=== PATIENT | female | born 1940 | race Caucasian/White ===

== ENCOUNTER 2017-05-19 20:37 | Inpatient (IN) | payer MEDICARE, BC ==
[~2017-05-19] VITALS: Ht 162.6 cm; Wt 114.0 kg
--- NOTE | ~2017-05-19 | CO ---
Unit #: [id number] #: [id number] Patient: LAI VILLEGAS [id number] [address] [place], [place] [address] [id number] I MR#: [id number] NAME: LAI VILLEGAS ROOM: 311 Age: 77 Sex: F Admission Date: 05/20/2017 : 1940 Attending Physician: Shruti Chester M.D. Primary Care Physician: Murray Mary M.D. Consultation Date: 05/20/2017 CONSULTATION REPORT BRIEF HISTORY The patient is a 77-year-old lady, who lives at home, was unable to ambulate quite sometime. She presents with persistent erythema on her lower extremities with open wounds anteriorly. She presents for evaluation. PAST MEDICAL HISTORY Hypertension and thyroid disease. PAST SURGICAL HISTORY She has had bilateral total knee replacements in 2011, right hip replacement, hemorrhoidectomy. MEDICATIONS Celebrex, aspirin, hydrocodone. SOCIAL HISTORY No smoking. No alcohol. Lives at home with and daughter. FAMILY HISTORY Negative for GI malignancy. REVIEW OF SYSTEMS No cardiopulmonary complaints at this time. Else, 10 systems reviewed and negative. PHYSICAL EXAMINATION GENERAL: She is awake, alert, comfortable. VITAL SIGNS: Temperature is 97.7, pulse 100, blood pressure 160/80. HEENT: Unremarkable. NECK: Supple. No JVD. Trachea midline. LUNGS: Clear to auscultation. Bilateral breath sounds symmetric. CARDIOVASCULAR: Regular rate and rhythm. ABDOMEN: Soft, nontender, and nondistended. I palpate no masses. No hepatosplenomegaly. EXTREMITIES: Shows circumferential erythema in the bilateral lower extremities with 2+ pitting edema. There was exudate on the anterior portion of the bilateral lower extremities. She has a palpable posterior pulses. DIAGNOSTIC STUDIES LABORATORY RESULTS: White count is 19.5. ASSESSMENT Unit #: [id number] #: [id number] Patient: LAI VILLEGAS Chronic venous stasis with cellulitis. PLAN Recommend IV antibiotics. We will defer local treatment to wound care nurse. Did not see an area that needs surgical debridement at this time. Likely require long-term compression treatment with Unna boots or compressive stockings. Dictated by... Catrachito Verde M.D. MER/refugio TD: 05/20/2017 19:28 JOB #: [id number] CONSULTATION REPORT Page 1 of 1 X Catrachito Verde MD CONSULTATION REPORT
--- NOTE | ~2017-05-19 | BMI ---
[facility] Nutrition Therapy DATE: 05/20/17 Patient: LAI VILLEGAS Physician: KEEGAN Address: [address] [place] [address] Room/Bed: [address] [place] [address], Zip: [place] [address] Admit Date: 05/20/17 Date of : 40 Height: 5 4 Weight: 251 114 HIGH BMI NOTE: ANTHROPOMETRICS: HT: 64" WT: 114 KG BMI: 43.1 DIET: HEART HEALTHY RECOMMENDATIONS: 1. CONTINUE CURRENT DIET TO PROMOTE GRADUAL WEIGHT LOSS TOWARDS A HEALTHY BMI RANGE. Respectfully, MITCHEL PETER RD, LD [employer] [facility] cc: client file
--- NOTE | ~2017-05-19 | CR72 ---
[facility] A Service of [facility] RADIOLOGY TEXT RESULTS PATIENT: LAI VILLEGAS LOCATION: [facility] 311- : 40 UNIT #: [id number] AGE: [address]: Shruti Chester MD SEX: F ORDER DR: [id number] [facility] [address] [place], [place] [address] [id number] I MR#: [id number] Acc #: [id number] NAME: LAI VILLEGAS : 1940 SEX: F STUDY DATE/TIME: 05/19/2017 22:21 UNIT: C3A PCU ROOM: [facility] STUDY DESCRIPTION: CR Chest Single View Portable Attending Physician: Key Reyes M.D. Ordering Physician: Ara Hernandez M.D. Primary Care Physician: Murray Mary M.D. MEDICAL IMAGING REPORT This report is preliminary unless electronic signature is present EXAM AP view of the chest COMPARISON July 10, 2012. INDICATION 77-year-old female with chest pain and dyspnea today. FINDINGS Hazy attenuation over the left costophrenic sulcus may reflect prominent breast shadow. Left basilar atelectasis, pneumonia, or pleural effusion cannot entirely be excluded. There is multilevel degenerative change of the visualized cervical spine bilaterally. No evidence of pneumothorax. Right lung is clear. Cardiomediastinal silhouette is within normal limits. There is undersurface touching of both humeral heads to the acromion, findings suggestive of full-thickness rotator cuff tear bilaterally. IMPRESSION 1. Attenuation over the left costophrenic sulcus may represent prominent breast shadow but left basilar atelectasis, pneumonia, or pleural effusion cannot entirely be excluded. Standard PA and lateral views of the chest may be helpful for evaluation if clinically indicated. 2. Findings most consistent with bilateral full-thickness rotator cuff tear. Dictated by... Mike Fuentes M.D. THIS IS AN ELECTRONICALLY VERIFIED REPORT Mike Fuentes M.D. at 05/24/2017 11:02 PM [facility] A Service of [facility] RADIOLOGY TEXT RESULTS PATIENT: LAI VILLEGAS LOCATION: C3A 311-01 : 40 UNIT #: [id number] AGE: [address]: Shruti Cehster MD SEX: F ORDER DR: Brady TD: 05/20/2017 05:40 JOB #: [id number] MEDICAL IMAGING REPORT Page 1 of 1 COPY
--- NOTE | ~2017-05-19 | CO ---
Unit #: [id number] #: [id number] Patient: LAI VILLEGAS [id number] [address] [address] [id number] I MR#: [id number] NAME: LAI VILLEGAS ROOM: 311 Age: 77 Sex: F Admission Date: 05/20/2017 : 1940 Attending Physician: Shruti Chester M.D. Primary Care Physician: Murray Mary M.D. CONSULTATION REPORT REASON FOR CONSULTATION Hyponatremia. HISTORY OF PRESENT ILLNESS The patient is a 77-year-old white female with known history of hypertension and history of arthritis, came in with lower extremity swelling and wound and admitted for underlying cellulitis. Sodium level on admission noted to be 117. The patient was noted to have unkempt clothes with solidified fecal material in the clothes. The patient was treated with IV fluids and normal saline. MEDICATIONS No home medications other than Tylenol. PAST MEDICAL HISTORY Significant for hypertension; arthritis, status post bilateral total knee replacement; right hip replacement. ALLERGIES No known drug allergies. FAMILY HISTORY Significant for coronary artery disease. SOCIAL HISTORY The patient lives at home with her daughter and her and has a long-term history of smoking several pack years and does not drink. REVIEW OF SYSTEMS CVS: No chest pain. RESPIRATORY: No cough or expectoration. GI: As above. : No hematuria. No dysuria. PHYSICAL EXAMINATION GENERAL: The patient is awake and alert. VITAL SIGNS: Temperature is 97.7, heart rate is 100 per minute, blood pressure is 167/86, saturation is 96%. HEENT: Head is atraumatic. Extraocular movements are intact. NECK: Supple. There is no elevation of JVD. CHEST: Clear. Air entry is decreased in the bases. S1-S2 audible. There is no S3. No S4. ABDOMEN: Soft. There is no organomegaly. No guarding. No rigidity. No rebound tenderness. There is bilateral lower extremity edema with Unit #: [id number] #: [id number] Patient: LAI VILLEGAS dressing on both lower extremities. DIAGNOSTIC STUDIES LABORATORY RESULTS: Significant for sodium 117, potassium 5.2, chloride is 87, CO2 is 19, BUN is 59, creatinine is 1.4, glucose is 121, calcium is 9.1. On 05/19/2017, the CK is 126, total bilirubin is 1.0. WBCs 13.4, hemoglobin is 12.4, hematocrit is 37.7, platelets 487. Urinalysis is bland. Lactic acid is 1.8. Tylenol level is less than 10. Cortisol is 55. TSH is 1.51. Vitamin B12 is 997. IMPRESSION 1. Hyponatremia likely hypervolemic hyponatremia with increased ADH state. We will stop the IV fluids and start diuretics and restrict the fluids. Also consider checking echocardiogram for ejection fraction and diastolic dysfunction. 2. Non-anion gap metabolic acidosis, likely underlying respiratory alkalosis. Check ABG. Check for underlying RTA. 3. Hypertension. 4. Might need evaluation for rehab or skilled nursing placement. We will follow the patient. Dictated by... Pete Genao M.D. RA/refugio TD: 05/22/2017 18:22 JOB #: [id number] CONSULTATION REPORT Page 1 of 1 X Pete Genao MD CONSULTATION REPORT
--- NOTE | ~2017-05-19 | DS ---
Unit #: [id number] #: [id number] Patient: LAI VILLEGAS [id number] [address] [address] [id number] I MR#: [id number] NAME: LAI VILLEGAS ROOM: [facility] Age: 77 Sex: F Admission Date: 05/20/2017 : 1940 Discharge Date: 05/25/2017 Attending Physician: Shruti Chester M.D. Primary Care Physician: Murray Mary M.D. DISCHARGE SUMMARY DISCHARGE DIAGNOSES 1. Bilateral lower extremity cellulitis with open wounds. 2. Right posterior upper back decubitus ulcer. 3. Recurrent falls. 4. Increasing immobilization syndrome. 5. Dehydration. 6. Hypovolemic hyponatremia. 7. Elevated liver enzymes. 8. Degenerative joint disease. 9. Acute kidney injury. 10. Metabolic acidosis. 11. Bacteremia secondary to contamination with diphtheroids. 12. Mild hyperkalemia. 13. Hyperuricemia. 14. Moderate protein malnutrition. 15. Morbid obesity. CONSULTANTS Dr. Verde. Dr. Nikita Genao. PROCEDURES PERFORMED None. DIAGNOSTIC DATA LABORATORY: Sodium 133, potassium 4.7, creatinine 0.8. Hepatitis panel negative. Blood cultures show diphtheroids, likely contamination. Strep DNA group A negative. ABG, pH 7.38, carbon dioxide 38, oxygen 90. BNP 160. B12 level 997. BMI 43. IMAGING: Chest x-ray shows bilateral atelectasis. ALLERGIES No known drug allergies. DISCHARGE MEDICATIONS 1. Bactroban applied topically b.i.d. 2. Colace 100 p.o. b.i.d. 3. MiraLAX 17 g daily p.r.n. constipation. 4. Keflex 500 mg p.o. t.i.d. for 4 days. 5. Lasix 40 p.o. b.i.d. 6. Florastor 250 p.o. b.i.d. 7. Multivitamin 1 tablet daily. 8. Aspirin 81 daily. Unit #: [id number] #: [id number] Patient: LAI VILLEGAS 9. Lortab 5 mg t.i.d. p.r.n. pain. 10. Eye vitamin tablet 1 tablet p.o. b.i.d. 11. Clobetasol applied topically b.i.d. HOSPITAL COURSE 77-year-old admitted because of cellulitis. Bilateral leg cellulitis with open wounds: The patient was seen by [facility]. They recommend no surgery needed. The patient was started on IV Unasyn. No wound cultures available. The patient will be discharged on Keflex for four more days. Continue with local wound care. Hypervolemic hyponatremia: Patient was seen by nephrology. Currently volume okay. Patient received initially IV fluids. Currently off fluids. Sodium 133 and stable. Metabolic acidosis: The patient received bicarbonate. Currently stable. Posterior back decubitus: Continue with local wound care. Immobility and falls: The patient is being discharged to rehab. Sepsis: Present on admission. Secondary to cellulitis. Resolved currently. Acute kidney injury: Prerenal. The patient received IV fluids on admission. Currently stable. Transaminitis: Likely from Tylenol. Monitor closely. Current levels are normal. The patient will be discharged to rehab. The patient needs continuous local wound care and physical therapy. Dictated by... Lizandro Herrmann/ney TD: 05/25/2017 12:05 JOB #: [id number] CC: Murray Mary M.D. DISCHARGE SUMMARY Page 1 of 1 X Shruti Chester MD X DISCHARGE SUMMARY
--- NOTE | ~2017-05-19 | EKG ---
PATIENT: LAI VILLEGAS UNIT #: [id number] Ventricular Rate: 98 BPM Atrial Rate: 98 BPM P-R Interval: 150 ms QRS Duration: 82 ms Q-T Interval: 334 ms QTC Calculation(Bezet): 426 ms P Sidney: 38 degrees Calculated R Sidney: 41 degrees Calculated T Sidney: 35 degrees Diagnosis Line: Normal sinus rhythm Diagnosis Line: Normal ECG Diagnosis Line: When compared with ECG of 25-JUL-2012 10:48, Diagnosis Line: ST elevation now present in Inferior leads Diagnosis Line: Nonspecific T wave abnormality no longer evident Diagnosis Line: in Anterolateral leads Diagnosis Line: Confirmed by CHRISTINE CALDERON MD ([id number]) on Diagnosis Line: 05/20/2017 4:46:02 PM INTERPRETING : CARMELA
--- NOTE | ~2017-05-19 | HP ---
Unit #: [id number] #: [id number] Patient: LAI VILLEGAS [id number] [address] [address] [id number] I MR#: [id number] NAME: LAI VILLEGAS ROOM: 311 Age: 77 Sex: F Admission Date: 05/20/2017 : 1940 Attending Physician: Key Reyes M.D. Primary Care Physician: Murray Mary M.D. HISTORY AND PHYSICAL CHIEF COMPLAINT Bilateral lower extremity cellulitis with open wounds, dehydration, hyponatremia. HISTORY This 77-year-old female with previous history of hypertension, DJD, is admitted for lower extremity cellulitis. Patient lives with her and her daughter recently moved in. The patient has become increasing immobilized not being able to get off the couch. At some point in time, she developed lower extremity wounds, which she takes Tylenol and used an antibiotic ointment. Fell x2 over the past couple of days. She was brought to this emergency department late last evening extremely unkempt with clothes that appeared not to have been changed for a long time caked in feces. On examination, she has bilateral lower extremity wounds and cellulitis. Also has a upper posterior right thoracic stage 2-3 decub secondary to her bra. Labs are notable for acute kidney injury, hyponatremia. Also noted is transaminitis. In the ER, she was bolused with a liter of saline, given a gram of Rocephin, morphine, and Zofran. PAST MEDICAL HISTORY 1. Previous history of hypertension. 2. DJD. 3. Bilateral total knee replacements. 4. Right hip replacement. ALLERGIES No known drug allergies. HOME MEDICATIONS Tylenol and antibiotic ointment. FAMILY HISTORY CAD. SOCIAL HISTORY The patient lives with her . Daughter has just moved in to help with her parents' (1) . Patient is a lifelong nonsmoker and does not drink alcohol. REVIEW OF SYSTEMS Notable for falling, DJD, abovementioned surgery, increasing wounds over the legs. All other systems were reviewed and otherwise negative. Unit #: [id number] #: [id number] Patient: LAI VILLEGAS PHYSICAL EXAMINATION GENERAL APPEARANCE: Obese, 77-year-old female currently in no acute distress. VITAL SIGNS: Temperature 97.7, pulse 100, respirations 18, initial blood pressure 167/86, O2 saturation is 96% on room air. HEENT: Eyes: PERRLA. Extraocular muscles are intact. Pharynx is benign. NECK: Supple without adenopathy or thyromegaly. CHEST: Reveals a few crackles at the right base. CARDIAC: Normal S1 and S2 without murmur. ABDOMEN: Bowels sounds are present. No hepatosplenomegaly, tenderness, or masses. EXTREMITIES: Notable for superficial wounds over the lower extremity bilaterally including the feet. Yellowish adherent material to these open wounds and cellulitis. SKIN: Examination is also notable for a stage 2-3 decub over the posterior aspect, right upper back. NEUROLOGIC EXAM: Patient is awake, alert. She seems to be fairly oriented. She has equal strength throughout, but is extremely weak on exam. Needs help just to sit up in bed. DIAGNOSTIC STUDIES ADMISSION LABS: Hematocrit 37.7, white blood count is 13.4, platelet count is 487. SMA-12: Glucose 121, BUN 59, sodium 117, potassium 5.3, chloride is 87, CO2 19, albumin of 3.2, ALT 48, alk phos 199. CPK is normal. Lactic acid is normal. Cardiac markers are negative. Urinalysis: Specific gravity is 1.028, negative. IMAGING: Chest x-ray: No acute disease, although the left lower lobe is difficult to see due to breast. CARDIOVASCULAR: EKG: Sinus rhythm, rate 98, normal appearing. ASSESSMENT 1. Bilateral lower extremity cellulitis with open wounds and sores. 2. Right posterior upper back decubitus. 3. Falls and increasing immobilization syndrome. 4. Dehydration. 5. Hyponatremia, which may be hypovolemic hyponatremia. Obviously, we will check thyroid function test and cosyntropin stimulation test. 6. Elevated liver function tests. Patient does take Tylenol. 7. Degenerative joint disease. 8. Acute kidney injury. PLANS 1. Check acetaminophen level. 2. IV fluids and monitor sodium carefully. 3. Check cosyntropin stimulation test, TSH, and B12 level. 4. IV Unasyn and Diflucan. 5. Wound nurse to see and will ask [facility] to see in case patient needs any sort of debridement. 6. DVT prophylaxis. 7. chronic disease manager to see along with physical therapy to assess. Dictated by Unit #: [id number] #: [id number] Patient: LAI VILLEGAS M.D. AML/pc TD: 05/20/2017 05:56 JOB #: [id number] HISTORY AND PHYSICAL Page 1 of 1 X Key Reyes MD X HISTORY AND PHYSICAL
[~2017-05-19 20:37] MED LIST: ACETAMINOPHEN PR; ASPIRIN81 M1 PO; CELEBREX PO; HYDROCHLOROTHIA25 MG PO; HYDROCODON-ACE1 EAC7 PO; MULTI-DAY VITAM1 TAB PO; PRESERVISION1 EA PO; TYLENOL ARTHRITIS; VOLTAREN75 MG PO
[2017-05-19 22:08] LABS: URINE SOURCE CATH
[2017-05-19 22:13] LABS: URINE APPEARANCE CLEAR; URINE BILIRUBIN NEG (NEG); URINE BLOOD NEG (NEG); URINE COLOR DK YELLOW; URINE GLUCOSE NEG (NEG); URINE KETONE TRACE (NEG); URINE LEUKOCYTE ESTERASE NEG (NEG); URINE NITRATE NEG (NEG); URINE PROTEIN NEG (NEG); URINE SPECIFIC GRAVITY 1.028 (1.003-1.035)
[2017-05-19 22:18] LABS: CULTURE INDICATED? NO
[2017-05-19 22:37] LABS: BASOPHIL% 0.1 % (0-2.5); EOSINOPHIL% 0.2 % (0.0-7.0); HEMATOCRIT 37.7 % (35.0-45.0); HEMOGLOBIN 12.4 gm/dL (12.0-16.0); LYMPHOCYTE# 1.1 X10e3 (1.0-3.5); LYMPHOCYTE% 8.1 % (17.0-45.0); MEAN CELL VOLUME 84.5 FL (83-96); MEAN CORPUSCULAR HEMOGLOBIN 27.7 PG (28-34); MEAN CORPUSCULAR HGB CONC 32.8 g/dL (30-36); MEAN PLATELET VOLUME 8.5 FL (6.5-11.5); MONOCYTE# 0.7 X10e3 (0-1.0); MONOCYTE% 5.4 % (3.0-12.0); NEUTROPHIL# 11.6 X10e3 (1.5-7.1); NEUTROPHIL% 86.2 % (40-75); PLATELET COUNT 487 X10e3 (140-420); RED BLOOD COUNT 4.46 X10e (3.90-5.30); RED CELL DISTRIBUTION WIDTH 15.9 % (11.0-15.5); WHITE BLOOD COUNT 13.4 X10e3 (4.0-10.5)
[2017-05-19 22:38] LABS: DIFF IND NO
[2017-05-19 22:47] LABS: POC - CKMB 7.8 ng/mL (0.0-7.9); POC - TROPONIN <0.05 ng/mL (<=0.05)
[2017-05-19 22:50] LABS: INR 0.9; PARTIAL THROMBOPLASTIN TIME 30.3 SECONDS (23.5-31.3); PROTHROMBIN TIME (PATIENT) 9.7 SECONDS (10.0-11.7)
[2017-05-19 22:59] LABS: ALBUMIN SERUM 3.2 g/dL (3.5-5.0); BILIRUBIN, DIRECT 0.1 mg/dL (0.0-0.2); BILIRUBIN,INDIRECT 0.9 mg/dL (0.0-0.9); BUN/CREATININE RATIO 42.14; CALCIUM SERUM 9.1 mg/dL (8.4-10.2); CREATININE SERUM 1.4 mg/dL (0.6-1.4); GLOM FILT RATE Estimated 36.1 mL/min (>60); POTASSIUM 5.2 mmol/L (3.5-5.1); PROTEIN TOTAL SERUM 7.6 g/dL (6.0-8.3)
[2017-05-20] MEDS ORDERED: TYLENOL EXTRA500 M1 PO (01:14)
[2017-05-20] MEDS ORDERED: ASPIRIN81 M2 PO (01:15)
[2017-05-20] MEDS ORDERED: CENTRUM SILVER PO (01:15)
[2017-05-20] MEDS ORDERED: EYE VITAMIN-MI1 EACH PO (01:17)
[2017-05-20 05:40] LABS: HEMATOCRIT 34.6 % (35.0-45.0); HEMOGLOBIN 11.7 gm/dL (12.0-16.0); MEAN CELL VOLUME 84.5 FL (83-96); MEAN CORPUSCULAR HEMOGLOBIN 28.5 PG (28-34); MEAN CORPUSCULAR HGB CONC 33.7 g/dL (30-36); MEAN PLATELET VOLUME 8.5 FL (6.5-11.5); RED BLOOD COUNT 4.1 X10e (3.90-5.30); RED CELL DISTRIBUTION WIDTH 15.5 % (11.0-15.5); WHITE BLOOD COUNT 19.5 X10e3 (4.0-10.5)
[2017-05-20 08:11] LABS: BUN/CREATININE RATIO 49.09; CALCIUM SERUM 8.7 mg/dL (8.4-10.2); CREATININE SERUM 1.1 mg/dL (0.6-1.4); GLOM FILT RATE Estimated 48.4 mL/min (>60); POTASSIUM 5.1 mmol/L (3.5-5.1)
[2017-05-20 11:57] LABS: HEMOGLOBIN 11.3 gm/dL (12.0-16.0); MEAN CELL VOLUME 84.9 FL (83-96); MEAN CORPUSCULAR HEMOGLOBIN 28.3 PG (28-34); MEAN CORPUSCULAR HGB CONC 33.3 g/dL (30-36); MEAN PLATELET VOLUME 8.1 FL (6.5-11.5); RED CELL DISTRIBUTION WIDTH 15.9 % (11.0-15.5); WHITE BLOOD COUNT 22.6 X10e3 (4.0-10.5)
[2017-05-20 14:58] LABS: BUN/CREATININE RATIO 44.54; CALCIUM SERUM 8.7 mg/dL (8.4-10.2); CREATININE SERUM 1.1 mg/dL (0.6-1.4); GLOM FILT RATE Estimated 48.4 mL/min (>60)
[2017-05-20 16:55] LABS: URIC ACID 8.9 mg/dL (2.6-7.2)
[2017-05-20 18:53] LABS: GLOM FILT RATE Estimated 54.3 mL/min (>60)
[2017-05-21 05:19] LABS: HEMATOCRIT 33.4 % (35.0-45.0); HEMOGLOBIN 10.7 gm/dL (12.0-16.0); MEAN CELL VOLUME 86.1 FL (83-96); MEAN CORPUSCULAR HEMOGLOBIN 27.6 PG (28-34); MEAN PLATELET VOLUME 8.4 FL (6.5-11.5); RED BLOOD COUNT 3.88 X10e (3.90-5.30); RED CELL DISTRIBUTION WIDTH 15.6 % (11.0-15.5); WHITE BLOOD COUNT 13.2 X10e3 (4.0-10.5)
[2017-05-21 06:37] LABS: CALCIUM SERUM 8.5 mg/dL (8.4-10.2); CREATININE SERUM 0.8 mg/dL (0.6-1.4); GLOM FILT RATE Estimated 71.2 mL/min (>60); POTASSIUM 4.6 mmol/L (3.5-5.1)
[2017-05-21 08:58] LABS: CREATININE,RANDOM URINE 69 mg/dL; TOTAL PROTEIN,RANDOM URINE 23 mg/dl (<10)
[2017-05-21 09:05] LABS: SODIUM URINE RANDOM <10 mmol/L
[2017-05-21 15:41] LABS: ARTERIAL BLD GAS O2 SATURATION 95.4 % (90.0-100.0); ARTERIAL BLOOD GAS CARBOXY HB 0.4 %sat (0.0-9.0); ARTERIAL BLOOD GAS MET HB 0.9 %sat (0.0-2.0); ARTERIAL BLOOD GAS PCO2 38.5 mmHg (35.0-45.0); ARTERIAL BLOOD GAS PO2 90.2 mmHg (80.0-100); ARTERIAL BLOOD GAS pH 7.385 (7.350-7.450)
[2017-05-21 15:42] LABS: ARTERIAL BLOOD GAS ALLEN TEST NORMAL; ARTERIAL BLOOD GAS ART SITE RIGHT RADIAL; ARTERIAL DRAW? YES
[2017-05-22 10:39] LABS: BUN/CREATININE RATIO 47.14; CALCIUM SERUM 8.5 mg/dL (8.4-10.2); CREATININE SERUM 0.7 mg/dL (0.6-1.4); GLOM FILT RATE Estimated 83.6 mL/min (>60); POTASSIUM 4.7 mmol/L (3.5-5.1)
[2017-05-23 05:12] LABS: HEMATOCRIT 31.4 % (35.0-45.0); HEMOGLOBIN 10.3 gm/dL (12.0-16.0); MEAN CELL VOLUME 85.2 FL (83-96); MEAN CORPUSCULAR HGB CONC 32.8 g/dL (30-36); MEAN PLATELET VOLUME 7.7 FL (6.5-11.5); RED BLOOD COUNT 3.69 X10e (3.90-5.30); RED CELL DISTRIBUTION WIDTH 15.9 % (11.0-15.5); WHITE BLOOD COUNT 10.6 X10e3 (4.0-10.5)
[2017-05-23 06:40] LABS: ALBUMIN SERUM 2.4 g/dL (3.5-5.0); BILIRUBIN,TOTAL 0.1 mg/dL (0.2-2.0); BUN/CREATININE RATIO 44.28; CALCIUM SERUM 8.9 mg/dL (8.4-10.2); CREATININE SERUM 0.7 mg/dL (0.6-1.4); GLOM FILT RATE Estimated 83.6 mL/min (>60); POTASSIUM 4.7 mmol/L (3.5-5.1); PROTEIN TOTAL SERUM 6.3 g/dL (6.0-8.3)
[2017-05-23 07:26] LABS: HA AB IGM (HEPPAN) Nonreactive (()); HB CORE AB IGM (HEPPAN) Nonreactive (Nonreactive); HB S AG (HEPPAN) Nonreactive (Nonreactive); HEP C AB (HEPPAN) Nonreactive (Nonreactive); HEP C AB SIGNAL TO CUTOFF 0.02 ratio (<1.00)
[2017-05-24 06:55] LABS: BUN/CREATININE RATIO 33.75; CALCIUM SERUM 8.9 mg/dL (8.4-10.2); CREATININE SERUM 0.8 mg/dL (0.6-1.4); GLOM FILT RATE Estimated 71.2 mL/min (>60); POTASSIUM 4.6 mmol/L (3.5-5.1)
[2017-05-25 05:56] LABS: BUN/CREATININE RATIO 32.5; CALCIUM SERUM 8.6 mg/dL (8.4-10.2); CREATININE SERUM 0.8 mg/dL (0.6-1.4); GLOM FILT RATE Estimated 71.2 mL/min (>60); POTASSIUM 4.7 mmol/L (3.5-5.1)
== END 2017-05-25 19:00 | DRG 871 ==
LOC: CED 20:37 → CEDOF 05-20 01:20 → CED 05-20 01:32 → C3A PCU 05-20 02:58 → CEDOF 05-20 02:58 → C3A PCU 05-20 02:58
PROVIDERS: Emergency Medicine; Internal Medicine; Internal Medicine Nephrology
PROC: B24BYZZ Ultrasonography of Heart with Aorta using Other Contrast (ICD-10-PCS; principal; 2017-05-22)
DX: A41.9 Sepsis, unspecified organism (principal); L89.113 Pressure ulcer of right upper back, stage 3; N17.9 Acute kidney failure, unspecified; E87.3 Alkalosis; E87.2 Acidosis; L03.115 Cellulitis of right lower limb; E44.0 Moderate protein-calorie malnutrition; E87.1 Hypo-osmolality and hyponatremia; Z68.41 Body mass index [BMI] 40.0-44.9, adult; L03.116 Cellulitis of left lower limb; E87.5 Hyperkalemia; E86.0 Dehydration; I10 Essential (primary) hypertension; Z96.653 Presence of artificial knee joint, bilateral; Z96.641 Presence of right artificial hip joint; M62.3 Immobility syndrome (paraplegic); M19.90 Unspecified osteoarthritis, unspecified site; R94.5 Abnormal results of liver function studies; Z79.82 Long term (current) use of aspirin; I87.8 Other specified disorders of veins; R74.0 Nonspecific elevation of levels of transaminase and lactic acid dehydrogenase [LDH]; E66.01 Morbid (severe) obesity due to excess calories; Z91.81 History of falling
CPT/HCPCS: 36415; 36600; 71010; 80048; 80053; 80074; 80076; 81003; 82533; 82550; 82553; 82570; 82607; 82803; 83605; 83880; 83930; 83935; 84156; 84295; 84300; 84443; 84484; 84550; 85025; 85027; 85610; 85730; 87040; 87651; 93005; 93306; 96361; 96365; 96375; 97110; 97116; 97161; 97166; 97530; 97535; 99285; G0480; G8978-GP; G8979-GP; G8987-GO; G8988-GO; J0295; J0696; J0833; J1650; J1940; J2270; J2405